=== PATIENT | male | born 1980 | race African-American/Black ===

== ENCOUNTER 2019-03-20 23:24 | Emergency (ER) | payer MEDICAID ==
[~2019-03-20] VITALS: Ht 188 cm; Wt 84.1 kg
[2019-03-20 23:28] VITALS: Ht 188 cm; Wt 84.1 kg
[2019-03-21] MEDS ORDERED: IMITREX50 MG PO (00:16)
[2019-03-21 00:51] VITALS: BP 128/81
== END 2019-03-21 00:51 | disposition home or self-care (01) ==
LOC: D.ER 23:24
DX: G43.909 Migraine, unspecified, not intractable, without status migrainosus (principal)